=== PATIENT | male | born 1940 | race Caucasian/White ===

== ENCOUNTER 2021-08-20 10:40 | Inpatient (IN) | payer OTHER ==
[~2021-08-20] VITALS: Ht 190.5 cm; Wt 87.8 kg
[2021-08-20] MEDS ORDERED: SODIUM CHLORIDE 0.9% 1,000 ML IV ONE (13:00)
[2021-08-20 13:10] LABS: Basophils # (auto) 0 10 ^3/uL (0-0.2); Basophils % (auto) 0.2 % (0.0-2.0); Eosinophils # (auto) 0 10 ^3/uL (0-0.8); Eosinophils % (auto) 0.1 % (0.0-7.0); Hemoglobin 13.2 g/dL (13.5-17.5); Lymphocytes # (auto) 0.7 10 ^3/uL (0.4-5.4); Lymphocytes % (auto) 6.8 % (10.0-50.0); Mean Corpuscular Hemoglobin 32.7 pg (28.0-32.0); Mean Corpuscular Hgb Conc. 32.9 g/dL (32.0-36.0); Mean Corpuscular Volume 99.4 fL (80.0-100.0); Monocytes # (auto) 0.5 10 ^3/uL (0-1.3); Monocytes % (auto) 5.3 % (0.0-12.0); Neutrophils # (auto) 8.6 10 ^3/uL (1.6-8.6); Neutrophils % (auto) 87.6 % (37.0-80.0); Red Blood Cells 4.02 10^6/uL (4.5-5.90); Red Cell Distribution Width 13.3 % (11.8-14.3); White Blood Cell 9.8 10^3/uL (4.4-10.8)
[2021-08-20 13:29] LABS: Calcium 8.8 mg/dL (8.5-10.1); Magnesium 2.6 mg/dL (1.6-2.6); Potassium 3.9 mmol/L (3.5-5.1)
[2021-08-20 13:32] LABS: BUN/Creatinine Ratio 18.7; Bilirubin, Total 0.8 mg/dL (0.2-1.0); Total Protein 7.7 g/dL (6.4-8.2)
[2021-08-20 13:39] LABS: INR 3.9 (0.9-1.15)
[2021-08-20 13:40] LABS: Partial Thromboplastin Time 44.9 sec (23.6-33.0)
[2021-08-20 14:00] LABS: Urine Bacteria NONE SEEN /hpf (None Seen); Urine Blood Negative /uL (Negative); Urine Mucus FEW (None Seen); Urine Specific Gravity 1.023 (1.001-1.035); Urine WBC 4 /hpf (0 - 3)
[2021-08-20] MEDS ORDERED: HYDROmorphone HCL 2 MG/ML VL/or syr IV PRN (17:00)
[2021-08-20] MEDS ORDERED: DOCUSATE SOD 100 MG CAP PO PRN (17:00)
[2021-08-20] MEDS ORDERED: ONDANSETRON HCL 4 MG/2 ML VIAL IV PRN (17:00)
[2021-08-20] MEDS ORDERED: ACETAMINOPHEN 325 MG TAB PO PRN (17:00)
[2021-08-20] MEDS ORDERED: ATROPINE SULF 1 MG/10ml SYR IV PRN (17:15)
[2021-08-20] MEDS: HYDROcodone-ACET 5/325MG TAB PO PRN ×2 (17:20→23:48)
[2021-08-20 18:31] LABS: Basophils # (auto) 0 10 ^3/uL (0-0.2); Basophils % (auto) 0.5 % (0.0-2.0); Eosinophils # (auto) 0 10 ^3/uL (0-0.8); Eosinophils % (auto) 0.4 % (0.0-7.0); Hematocrit 38.5 % (41.0-53.0); Hemoglobin 12.9 g/dL (13.5-17.5); Lymphocytes % (auto) 10.7 % (10.0-50.0); Mean Corpuscular Hemoglobin 33.2 pg (28.0-32.0); Mean Corpuscular Hgb Conc. 33.5 g/dL (32.0-36.0); Mean Corpuscular Volume 99.1 fL (80.0-100.0); Monocytes % (auto) 10.6 % (0.0-12.0); Neutrophils # (auto) 7.4 10 ^3/uL (1.6-8.6); Neutrophils % (auto) 77.8 % (37.0-80.0); Red Blood Cells 3.88 10^6/uL (4.5-5.90); Red Cell Distribution Width 13.3 % (11.8-14.3); White Blood Cell 9.5 10^3/uL (4.4-10.8)
[2021-08-20] MEDS: SODIUM CHLOR 0.9% PF (SALINE LOCK) 10ML VIAL/SYR IV SCH (23:49)
[2021-08-21] VITALS (9 sets, daily range): BP systolic 117–157; BP diastolic 64–87
[2021-08-21 00:51] LABS: Eosinophils # (auto) 0.2 10 ^3/uL (0-0.8); Red Blood Cells 3.57 10^6/uL (4.5-5.90)
[2021-08-21 00:52] LABS: Basophils # (auto) 0 10 ^3/uL (0-0.2); Basophils % (auto) 0.5 % (0.0-2.0); Eosinophils % (auto) 2.3 % (0.0-7.0); Hematocrit 35.6 % (41.0-53.0); Hemoglobin 12.1 g/dL (13.5-17.5); Lymphocytes # (auto) 1.3 10 ^3/uL (0.4-5.4); Mean Corpuscular Hgb Conc. 34.1 g/dL (32.0-36.0); Mean Corpuscular Volume 99.7 fL (80.0-100.0); Monocytes # (auto) 0.9 10 ^3/uL (0-1.3); Monocytes % (auto) 10.2 % (0.0-12.0); Neutrophils # (auto) 6.3 10 ^3/uL (1.6-8.6); Red Cell Distribution Width 13.5 % (11.8-14.3); White Blood Cell 8.8 10^3/uL (4.4-10.8)
[2021-08-21 05:17] LABS: Basophils # (auto) 0.1 10 ^3/uL (0-0.2); Basophils % (auto) 0.9 % (0.0-2.0); Eosinophils # (auto) 0.3 10 ^3/uL (0-0.8); Eosinophils % (auto) 3.6 % (0.0-7.0); Hematocrit 37.8 % (41.0-53.0); Hemoglobin 12.7 g/dL (13.5-17.5); Lymphocytes # (auto) 0.9 10 ^3/uL (0.4-5.4); Lymphocytes % (auto) 11.2 % (10.0-50.0); Mean Corpuscular Hemoglobin 33.2 pg (28.0-32.0); Mean Corpuscular Hgb Conc. 33.5 g/dL (32.0-36.0); Mean Corpuscular Volume 99.1 fL (80.0-100.0); Monocytes # (auto) 0.9 10 ^3/uL (0-1.3); Monocytes % (auto) 10.3 % (0.0-12.0); Neutrophils # (auto) 6.2 10 ^3/uL (1.6-8.6); Red Blood Cells 3.82 10^6/uL (4.5-5.90); Red Cell Distribution Width 13.4 % (11.8-14.3); White Blood Cell 8.4 10^3/uL (4.4-10.8)
[2021-08-21 05:38] LABS: BUN/Creatinine Ratio 17.1; Calcium 8.6 mg/dL (8.5-10.1); Potassium 3.7 mmol/L (3.5-5.1)
[2021-08-21 05:42] LABS: INR 3.43 (0.9-1.15)
[2021-08-21] MEDS: SODIUM CHLOR 0.9% PF (SALINE LOCK) 10ML VIAL/SYR IV SCH ×3 (08:20→23:06)
[2021-08-21] MEDS ORDERED: LOSA25TA38 PO (10:37)
[2021-08-21] MEDS ORDERED: SERT50TA19 PO (10:37)
[2021-08-21] MEDS ORDERED: ASCO500C5 PO (10:38)
[2021-08-21] MEDS ORDERED: TAMS0.4C36 PO (10:38)
[2021-08-21] MEDS ORDERED: ATOR20TA50 PO (10:38)
[2021-08-21] MEDS ORDERED: METO25TA93 PO (10:38)
[2021-08-21] MEDS ORDERED: WARF6TAB21 PO ×2 (10:38)
[2021-08-21] MEDS ORDERED: PHYTONADIONE (VIT K)10 MG/ML 1ML VIAL SUBCUT ONE ×2 (11:00→15:15)
[2021-08-21 11:38] LABS: Basophils # (auto) 0.1 10 ^3/uL (0-0.2); Basophils % (auto) 0.7 % (0.0-2.0); Eosinophils # (auto) 0.3 10 ^3/uL (0-0.8); Eosinophils % (auto) 4.1 % (0.0-7.0); Hematocrit 39.2 % (41.0-53.0); Hemoglobin 13.1 g/dL (13.5-17.5); Lymphocytes # (auto) 0.9 10 ^3/uL (0.4-5.4); Lymphocytes % (auto) 11.1 % (10.0-50.0); Mean Corpuscular Hemoglobin 33.2 pg (28.0-32.0); Mean Corpuscular Hgb Conc. 33.4 g/dL (32.0-36.0); Mean Corpuscular Volume 99.2 fL (80.0-100.0); Monocytes # (auto) 0.8 10 ^3/uL (0-1.3); Monocytes % (auto) 9.2 % (0.0-12.0); Neutrophils # (auto) 6.2 10 ^3/uL (1.6-8.6); Neutrophils % (auto) 74.9 % (37.0-80.0); Red Blood Cells 3.95 10^6/uL (4.5-5.90); Red Cell Distribution Width 13.9 % (11.8-14.3); White Blood Cell 8.3 10^3/uL (4.4-10.8)
[2021-08-21] MEDS ORDERED: GLUCAGON HYDROCHLORIDE (RDNA) 1 MG VIAL IV ONE (11:45)
[2021-08-21] MEDS ORDERED: hydrALAZINE HCL 20 MG/ML VL IV PRN (12:45)
[2021-08-21 19:26] LABS: Basophils # (auto) 0.1 10 ^3/uL (0-0.2); Eosinophils # (auto) 0.4 10 ^3/uL (0-0.8); Monocytes # (auto) 0.7 10 ^3/uL (0-1.3)
[2021-08-21 19:27] LABS: Basophils % (auto) 0.7 % (0.0-2.0); Eosinophils % (auto) 3.9 % (0.0-7.0); Hematocrit 38.8 % (41.0-53.0); Hemoglobin 13.2 g/dL (13.5-17.5); Lymphocytes % (auto) 10.2 % (10.0-50.0); Mean Corpuscular Hemoglobin 33.8 pg (28.0-32.0); Mean Corpuscular Hgb Conc. 34.1 g/dL (32.0-36.0); Mean Corpuscular Volume 99.2 fL (80.0-100.0); Monocytes % (auto) 6.9 % (0.0-12.0); Neutrophils # (auto) 7.5 10 ^3/uL (1.6-8.6); Neutrophils % (auto) 78.3 % (37.0-80.0); Red Blood Cells 3.91 10^6/uL (4.5-5.90); Red Cell Distribution Width 13.7 % (11.8-14.3); White Blood Cell 9.6 10^3/uL (4.4-10.8)
[2021-08-21 19:30] LABS: INR 2.33 (0.9-1.15)
[2021-08-22] VITALS (17 sets, daily range): BP systolic 87–147; BP diastolic 53–99
[2021-08-22] MEDS: SODIUM CHLOR 0.9% PF (SALINE LOCK) 10ML VIAL/SYR IV SCH ×3 (06:01→22:00)
[2021-08-22 06:45] LABS: Basophils # (auto) 0 10 ^3/uL (0-0.2); Basophils % (auto) 0.5 % (0.0-2.0); Eosinophils # (auto) 0.5 10 ^3/uL (0-0.8); Eosinophils % (auto) 4.9 % (0.0-7.0); Hematocrit 40.8 % (41.0-53.0); Hemoglobin 13.8 g/dL (13.5-17.5); Lymphocytes % (auto) 10.5 % (10.0-50.0); Mean Corpuscular Hemoglobin 33.5 pg (28.0-32.0); Mean Corpuscular Hgb Conc. 33.9 g/dL (32.0-36.0); Mean Corpuscular Volume 98.9 fL (80.0-100.0); Monocytes # (auto) 0.9 10 ^3/uL (0-1.3); Monocytes % (auto) 9.4 % (0.0-12.0); Neutrophils # (auto) 7.3 10 ^3/uL (1.6-8.6); Neutrophils % (auto) 74.7 % (37.0-80.0); Red Blood Cells 4.12 10^6/uL (4.5-5.90); Red Cell Distribution Width 13.3 % (11.8-14.3); White Blood Cell 9.8 10^3/uL (4.4-10.8)
[2021-08-22 07:03] LABS: INR 1.46 (0.9-1.15)
[2021-08-22 07:12] LABS: Calcium 8.9 mg/dL (8.5-10.1); Magnesium 2.7 mg/dL (1.6-2.6); Potassium 3.6 mmol/L (3.5-5.1)
[2021-08-22 07:15] LABS: BUN/Creatinine Ratio 15.2
[2021-08-22] MEDS ORDERED: TRANEXAMIC ACID 20 ML ONE (07:28)
[2021-08-22] MEDS ORDERED: VANCOMYCIN HCL 1000 MG VL ONE (07:29)
[2021-08-22] MEDS ORDERED: BUPIVACAINE HCL 50 ML ONE (07:33)
[2021-08-22] MEDS ORDERED: EPINEPHrine HCL 1 MG/1 ML AMP ONE (07:42)
[2021-08-22] MEDS ORDERED: MORPHINE SULF PF 5 MG/10 ML VIAL ONE (07:42)
[2021-08-22] MEDS ORDERED: MIDAZOLAM HCL 2MG/2ML 2ml VIAL (1mg/ml) ONE (07:44)
[2021-08-22] MEDS ORDERED: fentaNYL CITRATE 100 MCG/2 ML VL ONE (07:44)
[2021-08-22] MEDS ORDERED: GLYCOPYRROLATE 0.2 MG/ML 1ML VIAL ONE (07:45)
[2021-08-22] MEDS ORDERED: PROPOFOL 10 MG/ML 20 ML IV ONE (07:45)
[2021-08-22] MEDS ORDERED: ePHEDrine SULFATE 50 MG/ML AMP ONE (07:45)
[2021-08-22] MEDS ORDERED: PHENYLEPHRINE HCL 10 MG/ML VL ONE (07:45)
[2021-08-22] MEDS ORDERED: LIDOCAINE HCL 100 MG/5ML (2%) SYRG INJ IV ONE (07:45)
[2021-08-22] MEDS ORDERED: BUPIVACAINE/DEXTROSE MPF 0.75% 2 ML AMP IT ONE (07:46)
[2021-08-22] MEDS ORDERED: KETAMINE HCL 10 ML ONE (07:47)
[2021-08-22] MEDS ORDERED: ceFAZolin 1GM/50ML 100 ML IV ONE (08:05)
[2021-08-22] MEDS ORDERED: ONDANSETRON HCL 4 MG/2 ML VIAL IV PRN ×2 (10:45)
[2021-08-22] MEDS ORDERED: NALOXONE HCL 0.4 MG/ML VIAL IV PRN (10:45)
[2021-08-22] MEDS ORDERED: FAMOTIDINE (10MG/ML) 2ML VL IV PRN (10:45)
[2021-08-22] MEDS ORDERED: KETOROLAC TROMETH 30 MG/ML 1ML VIAL IV PRN (10:45)
[2021-08-22] MEDS ORDERED: DexAMETHasone SOD PHOS 10MG/1ML VIAL INJ IV PRN (10:45)
[2021-08-22] MEDS ORDERED: diphenhdrAMINE HCL 50 MG/1 ML VL IV PRN (10:45)
[2021-08-22] MEDS: SODIUM CHLORIDE 0.9% 1,000 ML IV SCH ×2 (12:10→20:58)
[2021-08-22] MEDS ORDERED: CHOLECALCIFEROL (VITD3) 2,000 UNIT CAP/TAB PO ONE (12:30)
[2021-08-22] MEDS: ceFAZolin 2 GM in D5W 5% 100 ML IV SCH ×2 (14:09→22:08)
[2021-08-23] VITALS (16 sets, daily range): BP systolic 96–141; BP diastolic 52–86
[2021-08-23 05:00] LABS: Basophils # (auto) 0 10 ^3/uL (0-0.2); Basophils % (auto) 0.1 % (0.0-2.0); Eosinophils # (auto) 0 10 ^3/uL (0-0.8); Eosinophils % (auto) 0.2 % (0.0-7.0); Hematocrit 34.5 % (41.0-53.0); Hemoglobin 11.7 g/dL (13.5-17.5); Lymphocytes # (auto) 0.8 10 ^3/uL (0.4-5.4); Lymphocytes % (auto) 5.9 % (10.0-50.0); Mean Corpuscular Hemoglobin 33.5 pg (28.0-32.0); Mean Corpuscular Hgb Conc. 33.8 g/dL (32.0-36.0); Mean Corpuscular Volume 99.2 fL (80.0-100.0); Monocytes # (auto) 1.1 10 ^3/uL (0-1.3); Monocytes % (auto) 8.5 % (0.0-12.0); Neutrophils % (auto) 85.3 % (37.0-80.0); Red Blood Cells 3.48 10^6/uL (4.5-5.90); Red Cell Distribution Width 13.2 % (11.8-14.3)
[2021-08-23 05:16] LABS: INR 1.17 (0.9-1.15)
[2021-08-23 05:22] LABS: BUN/Creatinine Ratio 25.6; Calcium 8.5 mg/dL (8.5-10.1); Potassium 4.2 mmol/L (3.5-5.1)
[2021-08-23] MEDS: SODIUM CHLORIDE 0.9% 1,000 ML IV SCH ×2 (06:15→15:30)
[2021-08-23] MEDS: SODIUM CHLOR 0.9% PF (SALINE LOCK) 10ML VIAL/SYR IV SCH ×3 (06:15→22:00)
[2021-08-23] MEDS: CHOLECALCIFEROL (VITD3) 2,000 UNIT CAP/TAB PO SCH (09:48)
[2021-08-23] MEDS: HYDROcodone-ACET 5/325MG TAB PO PRN (14:12)
[2021-08-23] MEDS ORDERED: WARFARIN SODIUM 2 MG TAB PO ONE (17:00)
[2021-08-23] MEDS: ERGOCALCIFEROL 50,000 UNIT(1.25MG) CAP PO SCH (17:24)
[2021-08-23] MEDS: TAMSULOSIN HYDROCHLORIDE 0.4 MG CAP PO SCH (17:24)
[2021-08-24] VITALS (7 sets, daily range): BP systolic 112–139; BP diastolic 58–82
[2021-08-24] MEDS: SODIUM CHLOR 0.9% PF (SALINE LOCK) 10ML VIAL/SYR IV SCH ×3 (06:48→22:41)
[2021-08-24 07:46] LABS: Basophils # (auto) 0.1 10 ^3/uL (0-0.2); Eosinophils # (auto) 0.9 10 ^3/uL (0-0.8); Eosinophils % (auto) 8.4 % (0.0-7.0); Hemoglobin 11.8 g/dL (13.5-17.5); Lymphocytes % (auto) 9.6 % (10.0-50.0); Mean Corpuscular Hemoglobin 33.4 pg (28.0-32.0); Mean Corpuscular Hgb Conc. 33.6 g/dL (32.0-36.0); Mean Corpuscular Volume 99.2 fL (80.0-100.0); Monocytes % (auto) 9.4 % (0.0-12.0); Neutrophils # (auto) 7.3 10 ^3/uL (1.6-8.6); Neutrophils % (auto) 71.6 % (37.0-80.0); Red Blood Cells 3.53 10^6/uL (4.5-5.90); Red Cell Distribution Width 13.7 % (11.8-14.3); White Blood Cell 10.3 10^3/uL (4.4-10.8)
[2021-08-24] MEDS: SODIUM CHLORIDE 0.9% 1,000 ML IV SCH (07:53)
[2021-08-24 08:05] LABS: BUN/Creatinine Ratio 21.1; Calcium 8.4 mg/dL (8.5-10.1); Magnesium 2.3 mg/dL (1.6-2.6); Potassium 3.8 mmol/L (3.5-5.1)
[2021-08-24 08:08] LABS: INR 1.03 (0.9-1.15)
[2021-08-24] MEDS: CHOLECALCIFEROL (VITD3) 2,000 UNIT CAP/TAB PO SCH (09:34)
[2021-08-24] MEDS: ENOXAPARIN SOD 100 MG/1 ML SYRINGE SC SCH (15:53)
[2021-08-24] MEDS ORDERED: ENOXAPARIN SOD 100 MG/1 ML SYRINGE SC SCH (16:00)
[2021-08-24] MEDS ORDERED: WARFARIN SODIUM 2.5 MG TAB PO ONE (17:00)
[2021-08-24] MEDS: TAMSULOSIN HYDROCHLORIDE 0.4 MG CAP PO SCH (17:53)
[2021-08-25 05:00] VITALS: BP 135/79
[2021-08-25] MEDS: ENOXAPARIN SOD 100 MG/1 ML SYRINGE SC SCH ×2 (06:15→17:28)
[2021-08-25] MEDS: SODIUM CHLOR 0.9% PF (SALINE LOCK) 10ML VIAL/SYR IV SCH ×2 (06:15→13:28)
[2021-08-25 07:01] LABS: INR 1.05 (0.9-1.15)
[2021-08-25 07:06] LABS: BUN/Creatinine Ratio 18.6; Calcium 9.2 mg/dL (8.5-10.1); Potassium 3.7 mmol/L (3.5-5.1)
[2021-08-25 07:13] LABS: Basophils # (auto) 0.1 10 ^3/uL (0-0.2); Eosinophils # (auto) 0.9 10 ^3/uL (0-0.8); Eosinophils % (auto) 9.3 % (0.0-7.0); Hematocrit 34.2 % (41.0-53.0); Hemoglobin 12.1 g/dL (13.5-17.5); Lymphocytes % (auto) 10.1 % (10.0-50.0); Mean Corpuscular Hemoglobin 34.8 pg (28.0-32.0); Mean Corpuscular Hgb Conc. 35.3 g/dL (32.0-36.0); Mean Corpuscular Volume 98.6 fL (80.0-100.0); Monocytes # (auto) 0.9 10 ^3/uL (0-1.3); Monocytes % (auto) 9.3 % (0.0-12.0); Neutrophils # (auto) 6.8 10 ^3/uL (1.6-8.6); Neutrophils % (auto) 70.3 % (37.0-80.0); Red Blood Cells 3.47 10^6/uL (4.5-5.90); Red Cell Distribution Width 13.2 % (11.8-14.3); White Blood Cell 9.6 10^3/uL (4.4-10.8)
[2021-08-25 09:00] VITALS: BP 136/67
[2021-08-25] MEDS: CHOLECALCIFEROL (VITD3) 2,000 UNIT CAP/TAB PO SCH (09:32)
[2021-08-25 13:00] VITALS: BP 137/80
[2021-08-25 17:00] VITALS: BP 129/70
[2021-08-25] MEDS ORDERED: WARFARIN SODIUM 2.5 MG TAB PO ONE (17:00)
[2021-08-25] MEDS: TAMSULOSIN HYDROCHLORIDE 0.4 MG CAP PO SCH (17:27)
[2021-08-25 22:00] VITALS: BP 123/71
[2021-08-26 05:00] VITALS: BP 123/73
[2021-08-26] MEDS: ENOXAPARIN SOD 100 MG/1 ML SYRINGE SC SCH ×2 (06:22→17:15)
[2021-08-26] MEDS: SODIUM CHLOR 0.9% PF (SALINE LOCK) 10ML VIAL/SYR IV SCH ×4 (06:25→21:05)
[2021-08-26 08:54] LABS: INR 1.09 (0.9-1.15)
[2021-08-26 09:12] VITALS: BP 133/75
[2021-08-26] MEDS: CHOLECALCIFEROL (VITD3) 2,000 UNIT CAP/TAB PO SCH (10:11)
[2021-08-26 13:00] VITALS: BP 117/67
[2021-08-26] MEDS ORDERED: ASCORBIC ACID 500 MG TAB PO ONE (13:45)
[2021-08-26 17:00] VITALS: BP 132/78
[2021-08-26] MEDS ORDERED: WARFARIN SODIUM 2.5 MG TAB PO ONE (17:00)
[2021-08-26] MEDS ORDERED: WARFARIN SODIUM 10 MG TAB PO ONE (17:00)
[2021-08-26] MEDS: SERTRALINE HCL 50 MG TAB PO SCH (17:15)
[2021-08-26] MEDS: TAMSULOSIN HYDROCHLORIDE 0.4 MG CAP PO SCH (17:15)
[2021-08-26 20:00] VITALS: BP 125/64
[2021-08-26] MEDS: ATORVASTATIN 20 MG TAB PO SCH (21:05)
[2021-08-26 22:00] VITALS: BP 125/64
[2021-08-27 05:00] VITALS: BP 119/81
[2021-08-27] MEDS: ENOXAPARIN SOD 100 MG/1 ML SYRINGE SC SCH ×2 (06:00→17:54)
[2021-08-27] MEDS: SODIUM CHLOR 0.9% PF (SALINE LOCK) 10ML VIAL/SYR IV SCH ×3 (06:01→21:20)
[2021-08-27 06:29] LABS: INR 1.16 (0.9-1.15)
[2021-08-27] MEDS: CHOLECALCIFEROL (VITD3) 2,000 UNIT CAP/TAB PO SCH (08:58)
[2021-08-27] MEDS: ASCORBIC ACID 500 MG TAB PO SCH (08:58)
[2021-08-27] MEDS: LOSARTAN POTASSIUM 25 MG TAB PO SCH (08:59)
[2021-08-27 09:00] VITALS: BP 139/83
[2021-08-27 13:00] VITALS: BP 100/58
[2021-08-27 14:58] LABS: Basophils # (auto) 0.1 10 ^3/uL (0-0.2); Basophils % (auto) 0.7 % (0.0-2.0); Eosinophils # (auto) 0.5 10 ^3/uL (0-0.8); Eosinophils % (auto) 5.3 % (0.0-7.0); Hematocrit 37.8 % (41.0-53.0); Hemoglobin 12.4 g/dL (13.5-17.5); Lymphocytes # (auto) 0.7 10 ^3/uL (0.4-5.4); Lymphocytes % (auto) 8.2 % (10.0-50.0); Monocytes # (auto) 0.9 10 ^3/uL (0-1.3); Monocytes % (auto) 10.5 % (0.0-12.0); Neutrophils # (auto) 6.6 10 ^3/uL (1.6-8.6); Neutrophils % (auto) 75.3 % (37.0-80.0); Nucleated Red Blood Cells % 0.1 %; Red Blood Cells 3.77 10^6/uL (4.5-5.90); Red Cell Distribution Width 13.4 % (11.8-14.3); White Blood Cell 8.8 10^3/uL (4.4-10.8)
[2021-08-27 15:13] LABS: Mean Corpuscular Volume 100.2 fL (80.0-100.0)
[2021-08-27 17:00] VITALS: BP 104/73
[2021-08-27] MEDS ORDERED: WARFARIN SODIUM 10 MG TAB PO ONE (17:00)
[2021-08-27] MEDS: TAMSULOSIN HYDROCHLORIDE 0.4 MG CAP PO SCH (17:53)
[2021-08-27] MEDS: SERTRALINE HCL 50 MG TAB PO SCH (17:54)
[2021-08-27 20:00] VITALS: BP 115/61
[2021-08-27] MEDS: ATORVASTATIN 20 MG TAB PO SCH (21:20)
[2021-08-27 21:44] VITALS: BP 115/61
[2021-08-28 05:00] VITALS: BP 125/80
[2021-08-28] MEDS: ENOXAPARIN SOD 100 MG/1 ML SYRINGE SC SCH ×2 (06:19→17:38)
[2021-08-28] MEDS: SODIUM CHLOR 0.9% PF (SALINE LOCK) 10ML VIAL/SYR IV SCH ×3 (06:20→21:53)
[2021-08-28 07:07] LABS: Hematocrit 35.5 % (41.0-53.0); Hemoglobin 12.1 g/dL (13.5-17.5)
[2021-08-28 07:10] LABS: INR 1.46 (0.9-1.15)
[2021-08-28 07:16] LABS: Potassium 3.9 mmol/L (3.5-5.1)
[2021-08-28 07:19] LABS: Magnesium 2.4 mg/dL (1.6-2.6)
[2021-08-28 09:00] VITALS: BP 127/64
[2021-08-28] MEDS: CHOLECALCIFEROL (VITD3) 2,000 UNIT CAP/TAB PO SCH (10:00)
[2021-08-28] MEDS: ASCORBIC ACID 500 MG TAB PO SCH (10:00)
[2021-08-28] MEDS: LOSARTAN POTASSIUM 25 MG TAB PO SCH (10:37)
[2021-08-28] MEDS: HYDROcodone-ACET 5/325MG TAB PO PRN (12:42)
[2021-08-28 13:00] VITALS: BP 93/52
[2021-08-28 17:00] VITALS: BP 106/63
[2021-08-28] MEDS ORDERED: WARFARIN SODIUM 10 MG TAB PO ONE (17:00)
[2021-08-28] MEDS: TAMSULOSIN HYDROCHLORIDE 0.4 MG CAP PO SCH (17:37)
[2021-08-28] MEDS: SERTRALINE HCL 50 MG TAB PO SCH (17:38)
[2021-08-28 20:00] VITALS: BP 112/65
[2021-08-28] MEDS ORDERED: WARFARIN SODIUM 5 MG TAB PO ONE (20:45)
[2021-08-28] MEDS: ATORVASTATIN 20 MG TAB PO SCH (21:53)
[2021-08-28 22:00] VITALS: BP 112/65
[2021-08-29 05:00] VITALS: BP 128/72
[2021-08-29] MEDS: ENOXAPARIN SOD 100 MG/1 ML SYRINGE SC SCH ×2 (05:49→17:51)
[2021-08-29] MEDS: SODIUM CHLOR 0.9% PF (SALINE LOCK) 10ML VIAL/SYR IV SCH ×3 (05:49→21:22)
[2021-08-29 06:51] LABS: INR 1.71 (0.9-1.15); Partial Thromboplastin Time 37.3 sec (23.6-33.0)
[2021-08-29 09:00] VITALS: BP 110/65
[2021-08-29] MEDS: ASCORBIC ACID 500 MG TAB PO SCH (10:00)
[2021-08-29] MEDS: CHOLECALCIFEROL (VITD3) 2,000 UNIT CAP/TAB PO SCH (10:00)
[2021-08-29] MEDS: LOSARTAN POTASSIUM 25 MG TAB PO SCH (10:38)
[2021-08-29 13:00] VITALS: BP 115/68
[2021-08-29 16:19] VITALS: BP 125/69
[2021-08-29 16:23] VITALS: BP 108/67
[2021-08-29] MEDS ORDERED: WARFARIN SODIUM 10 MG TAB PO ONE (17:00)
[2021-08-29] MEDS: TAMSULOSIN HYDROCHLORIDE 0.4 MG CAP PO SCH (17:51)
[2021-08-29] MEDS: SERTRALINE HCL 50 MG TAB PO SCH (17:51)
[2021-08-29] MEDS: ATORVASTATIN 20 MG TAB PO SCH (21:22)
[2021-08-29 21:37] VITALS: BP 118/63
[2021-08-30 05:35] VITALS: BP 124/70
[2021-08-30] MEDS: ENOXAPARIN SOD 100 MG/1 ML SYRINGE SC SCH (05:52)
[2021-08-30] MEDS: SODIUM CHLOR 0.9% PF (SALINE LOCK) 10ML VIAL/SYR IV SCH ×2 (05:53→14:08)
[2021-08-30 06:44] LABS: INR 2.2 (0.9-1.15)
[2021-08-30 09:00] VITALS: BP 105/69
[2021-08-30] MEDS: ASCORBIC ACID 500 MG TAB PO SCH (09:16)
[2021-08-30] MEDS: LOSARTAN POTASSIUM 25 MG TAB PO SCH (09:16)
[2021-08-30] MEDS: CHOLECALCIFEROL (VITD3) 2,000 UNIT CAP/TAB PO SCH (09:16)
[2021-08-30] MEDS ORDERED: CHOL20007 PO (11:18)
[2021-08-30 13:00] VITALS: BP 122/68
[2021-08-30] MEDS: ERGOCALCIFEROL 50,000 UNIT(1.25MG) CAP PO SCH (15:55)
[2021-08-30 17:00] VITALS: BP 127/59
[2021-08-30] MEDS ORDERED: WARFARIN SODIUM 2.5 MG TAB PO ONE (17:00)
== END 2021-08-30 17:43 | disposition home health service (06) | DRG 522 ==
LOC: ER 10:40 → EDBD 10:40 → TELE 16:59 → TELE-WESTW 22:13 → TELE 08-29 14:27 → TELE-WESTW 08-29 14:29
PROVIDERS: ADMIT Internal Medicine; ATTEND Internal Medicine
PROC: 30233K1 Transfusion of Nonautologous Frozen Plasma into Peripheral Vein, Percutaneous Approach (ICD-10-PCS; 2021-08-21)
PROC: 0SRS0J9 Replacement of Left Hip Joint, Femoral Surface with Synthetic Substitute, Cemented, Open Approach (ICD-10-PCS; principal; 2021-08-22 08:26)
DX: S72.012A Unspecified intracapsular fracture of left femur, initial encounter for closed fracture (principal); I48.20 Chronic atrial fibrillation, unspecified; S20.212A Contusion of left front wall of thorax, initial encounter; Z95.2 Presence of prosthetic heart valve; I49.3 Ventricular premature depolarization; T45.515A Adverse effect of anticoagulants, initial encounter; N40.0 Benign prostatic hyperplasia without lower urinary tract symptoms; E55.9 Vitamin D deficiency, unspecified; Z20.822 Contact with and (suspected) exposure to COVID-19; E78.5 Hyperlipidemia, unspecified; W18.11XA Fall from or off toilet without subsequent striking against object, initial encounter; Y93.89 Activity, other specified; Z88.2 Allergy status to sulfonamides; Y92.091 Bathroom in other non-institutional residence as the place of occurrence of the external cause; Y99.8 Other external cause status; I10 Essential (primary) hypertension; Z79.01 Long term (current) use of anticoagulants
CPT/HCPCS: 36415; 71045; 71250; 72170; 72192; 80048; 80053; 80061; 81001; 82306; 83036; 83735; 84132; 84443; 84484; 85014; 85018; 85025; 85610; 85730; 86850; 86900; 86901; 93005; 93306; 96360; 97110; 97116; 97163; 97530; G0378; J0171; J0690; J2250; J2704; J3430; J3490; J7060